=== PATIENT | female | born 1975 | race American Indian/Alaskan Native ===

== ENCOUNTER 2019-04-02 16:10 | Emergency (ER) | payer SELFPAY ==
[2019-04-02 18:01] VITALS: BP 132/91
[2019-04-02 19:40] LABS: Amorphous Crystals,Urine 1+; Bilirubin,Urine NEG (Negative); Blood,Urine MOD (Negative); Color,Urine Yellow (Yellow); Mucus,Urine FEW /HPF; Protein,Urine <15 mg/dL mg/dL (Negative); Urobilinogen,Urine < 2.0 mg/dL (<2.0)
[2019-04-02 19:41] LABS: WBC,Urine < 1.0 /HPF (0.0-6.0)
[2019-04-02 19:50] LABS: Hematocrit 32.9 % (30.3-42.9); Hemoglobin 10.2 gm/dl (10.1-14.3); Mean Corpuscular HGB Conc 31 % (30-34); Mean Corpuscular Volume 72 fl (79-97); Platelet Count 288 K/mm3 (140-440); Red Blood Count 4.56 M/mm3 (3.65-5.03); Red Cell Distribution Width 18.7 % (13.2-15.2)
--- NOTE | 2019-04-02 20:32 | Emergency Department Report ---
ED Female HPI - General Chief complaint: Vaginal Bleeding Stated complaint: HEAVY FLOW Time Seen by Provider: 04/02/19 19:58 Source: patient Mode of arrival: Ambulatory Limitations: No Limitations - History of Present Illness Initial comments: Patient is a 44-year-old female presents emergency room with complaints of vaginal bleeding that began this morning. She states that it is heavy in nature and she has been passing clots. She states that she is having to change every hour. She states that it is time for her regular menstrual cycle. Patient states she has a past medical history of uterine fibroids. She states she has associated lower abdominal cramping and generalized weakness. She denies any nausea, vomiting, diarrhea, fever, urinary symptoms, vaginal discharge, back pain, any other symptoms. She states that she also has a history of anemiashe is on iron supplement. She denies any allergies medications. She denies any personal or family cardiac history or any personal or family history of DVT/PE. She does not have an INCIDENT RESPONSE LEAD. - Related Data Previous Rx's Medication Instructions Recorded Last Taken Type Acetaminophen/Codeine [Tylenol 1 tab PO Q6H PRN #10 tab 04/02/19 Unknown Rx /Codeine # 3 tab] medroxyPROGESTERone ACETATE 10 mg PO QDAY 10 Days #10 tablet 04/02/19 Unknown Rx [Provera] Allergies Allergy/AdvReac Type Severity Reaction Status Date / Time No Known Allergies Allergy Unverified 04/02/19 18:01 ED Review of Systems ROS: Stated complaint: HEAVY FLOW Other details as noted in HPI Comment: All other systems reviewed and negative ED Past Medical Hx - Past Medical History Previous Medical History?: Yes Additional medical history: Fibroids. Anemia - Surgical History Past Surgical History?: Yes Additional Surgical History: C section. Upper extremity amputation. - Social History Smoking Status: Never Smoker Substance Use Type: None - Medications Home Medications: Home Medications Medication Instructions Recorded Confirmed Last Taken Type Acetaminophen/Codeine [Tylenol 1 tab PO Q6H PRN #10 tab 04/02/19 Unknown Rx /Codeine # 3 tab] medroxyPROGESTERone ACETATE 10 mg PO QDAY 10 Days #10 tablet 04/02/19 Unknown Rx [Provera] ED Physical Exam - General Limitations: No Limitations General appearance: alert, in no apparent distress - Head Head exam: Present: atraumatic, normocephalic - Eye Eye exam: Present: normal appearance - ENT ENT exam: Present: mucous membranes moist - Respiratory Respiratory exam: Present: normal lung sounds bilaterally. Absent: respiratory distress, wheezes, rales, rhonchi, stridor, chest wall tenderness, accessory muscle use, decreased breath sounds, prolonged expiratory - Cardiovascular Cardiovascular Exam: Present: regular rate, normal rhythm, normal heart sounds. Absent: systolic murmur, diastolic murmur, rubs, gallop - GI/Abdominal GI/Abdominal exam: Present: soft, tenderness (mild suprapubic), normal bowel sounds. Absent: distended, guarding, rebound, rigid - Neurological Exam Neurological exam: Present: alert, oriented X3 - Psychiatric Psychiatric exam: Present: normal affect, normal mood - Skin Skin exam: Present: warm, dry, intact ED Course Vital Signs 04/02/19 04/02/19 17:59 20:46 Temperature 98.6 F Pulse Rate 78 73 Respiratory 18 16 Rate Blood Pressure 132/91 O2 Sat by Pulse 100 100 Oximetry ED Medical Decision Making - Lab Data Result diagrams: 04/02/19 19:27 - Medical Decision Making Patient is a 44-year-old female presents emergency room with complaints of vaginal bleeding that began this morning. She states that it is heavy in nature and she has been passing clots. She states that she is having to change every hour. She states that it is time for her regular menstrual cycle. Patient states she has a past medical history of uterine fibroids. She states she has associated lower abdominal cramping and generalized weakness. She denies any nausea, vomiting, diarrhea, fever, urinary symptoms, vaginal discharge, back pain, any other symptoms. She states that she also has a history of anemiashe is on iron supplement. She denies any allergies medications. She denies any personal or family cardiac history or any personal or family history of DVT/PE. She does not have an INCIDENT RESPONSE LEAD. Vitals are normal patient is not hypotensive or tachycardic. H&H are normal. HCG Quant is negative. UA shows red blood cells no signs of UTI. on exam: mild suprapubic TTP, no guarding, no rebound, no peritoneal signs. Patient is presenting with abnormal uterine bleeding, patient follow-up with an INCIDENT RESPONSE LEAD for further evaluation and management, patient states that she has a history of uterine fibroids. Patient's discomfort treated while in the emergency department as patient did not drive and her pain improved. Patient does not have any cardiac or VTE risk factors will prescribe patient short course of Provera. Patient given prescription for Provera and Tylenol with codeine. advised pt to Please take medication as prescribed. Do not drive or operate heavy machinery while taking pain medication. Increase your water intake over the next several days. Follow-up with a INCIDENT RESPONSE LEAD in the next 2-3 days for further evaluation and treatment. Return to the emergency room for any new or worsening symptoms. - Differential Diagnosis uterine fibroids, endometriosis, adenomyosis, AUB Critical care attestation.: If time is entered above; I have spent that time in minutes in the direct care of this critically ill patient, excluding procedure time. ED Disposition Clinical Impression: Abnormal uterine bleeding (AUB), Dysmenorrhea Menorrhagia Qualifiers: Menorrahagia type: with regular cycle Qualified Code(s): N92.0 - Excessive and frequent menstruation with regular cycle Disposition: TO HOME OR SELFCARE Is pt being admited?: No Does the pt Need Aspirin: No Condition: Stable Instructions: Dysmenorrhea (ED), Menorrhagia (ED) Additional Instructions: Please take medication as prescribed. Do not drive or operate heavy machinery while taking pain medication. Increase your water intake over the next several days. Follow-up with a INCIDENT RESPONSE LEAD in the next 2-3 days for further evaluation and treatment. Return to the emergency room for any new or worsening symptoms. Prescriptions: medroxyPROGESTERone ACETATE [Provera] 10 mg PO QDAY 10 Days #10 tablet Acetaminophen/Codeine [Tylenol /Codeine # 3 tab] 1 tab PO Q6H PRN #10 tab PRN Reason: Pain , Severe (7-10) Referrals: [facility] [Provider Group] - 2-3 Days [facility] [Provider Group] - 2-3 Days [facility] [Provider Group] - 2-3 Days Time of Disposition: 20:32 Print Language: MAURITIAN
[2019-04-02] MEDS ORDERED: traMADol 50 MG TAB PO ONE (20:34)
[2019-04-02 21:28] LABS: Basophils % (Manual) 0 % (0.0-1.8); Total Cells Counted 100
[2019-04-02 21:30] LABS: Large Platelets 1+; RBC Morphology Normal
[2019-04-02 21:31] LABS: Platelet Estimate Consistent w Auto
== END 2019-04-02 20:48 | disposition home or self-care (01) ==
LOC: ED 16:10
DX: N93.8 Other specified abnormal uterine and vaginal bleeding (principal); N94.6 Dysmenorrhea, unspecified; D64.9 Anemia, unspecified; Z98.890 Other specified postprocedural states; Z79.899 Other long term (current) drug therapy
CPT/HCPCS: 36415; 81001; 84702; 85007; 85025; 86900; 86901

== ENCOUNTER 2019-11-23 17:12 | Emergency (ER) | payer SELFPAY ==
[2019-11-23 21:15] LABS: Basophils # (Auto) 0.1 K/mm3 (0.0-0.1); Basophils % (Auto) 1.1 % (0.0-1.8); Eosinophils # (Auto) 0.2 K/mm3 (0.0-0.4); Eosinophils % (Auto) 2.1 % (0.0-4.3); Lymphocytes # (Auto) 2.5 K/mm3 (1.2-5.4); Mean Corpuscular HGB Conc 30 % (30-34); Monocytes # (Auto) 0.6 K/mm3 (0.0-0.8); Monocytes % (Auto) 6.4 % (0.0-7.3); Platelet Count 354 K/mm3 (140-440); Red Blood Count 4.56 M/mm3 (3.65-5.03)
[2019-11-23 21:17] LABS: Hemoglobin 8.3 gm/dl (10.1-14.3); Mean Corpuscular Volume 62 fl (79-97); Red Cell Distribution Width 22.3 % (13.2-15.2)
[2019-11-23 21:42] LABS: Alanine Aminotransferase 10 units/L (7-56); Albumin 3.9 g/dL (3.9-5); BUN/Creatinine Ratio 14; Blood Urea Nitrogen 7 mg/dL (7-17); Calcium 8.5 mg/dL (8.4-10.2); Hemolysis Index 0
--- NOTE | 2019-11-23 22:00 | XRay Report ---
CHEST 2 VIEWS INDICATION: Chest Pain. COMPARISON: None. FINDINGS: Support devices: None. Heart: Within normal limits. Lungs/Pleura: No acute air space or interstitial disease. No significant pleural effusion. IMPRESSION: No acute findings. Signer Name: Kennedy Evans MD Signed: 11/23/2019 9:56 PM Workstation Name: [id number]
[2019-11-23] MEDS ORDERED: KETOROLAC 30 MG/1 ML INJ IV ONE (23:56)
--- NOTE | 2019-11-24 00:02 | Emergency Department Report ---
ED Chest Pain HPI - General Chief Complaint: Chest Pain Stated Complaint: PAIN/HBP Time Seen by Provider: 11/23/19 23:35 Source: patient Mode of arrival: Ambulatory Limitations: No Limitations - History of Present Illness Initial Comments: 44-year-old female presents to the emergency department from an urgent care with a complaint of some left-sided chest pain with radiation to the left arm and back. Patient says that the arm pain started first but she has a history of some recurrent left arm pain. The pain seems to worsen with certain movements o f her body. She has some shortness of breath, but denies any fever, nausea, vomiting, diaphoresis. She went to an urgent care and was found to have very elevated blood pressure and was told to come to the emergency department for further evaluation. She has a past medical history of anemia and fibroids. No recent travel or sick contacts at home. She denies any tobacco or illicit drug use. Severity scale (0 -10): 10 - Related Data Previous Rx's Medication Instructions Recorded Last Taken Type Acetaminophen/Codeine [Tylenol 1 tab PO Q6H PRN #10 tab 04/02/19 Unknown Rx /Codeine # 3 tab] medroxyPROGESTERone ACETATE 10 mg PO QDAY 10 Days #10 tablet 04/02/19 Unknown Rx [Provera] Allergies Allergy/AdvReac Type Severity Reaction Status Date / Time No Known Allergies Allergy Unverified 04/02/19 18:01 Heart Score - HEART Score History: Slightly suspicious EKG: Non-specific Age: 45-65 Risk factors: No known risk factors Troponin: < normal limit HEART Score: 2 - Critical Actions Critical Actions: 0-3 pts:0.9-1.7%risk of adverse cardiac event.Candidate for discharge ED Review of Systems ROS: Stated complaint: PAIN/HBP Other details as noted in HPI Comment: All other systems reviewed and negative Constitutional: denies: chills, fever Eyes: denies: eye pain, vision change ENT: denies: ear pain, throat pain Respiratory: shortness of breath. denies: cough Cardiovascular: chest pain. denies: palpitations Gastrointestinal: denies: abdominal pain, vomiting Genitourinary: denies: dysuria, discharge Musculoskeletal: back pain, arthralgia. denies: joint swelling Skin: denies: rash, lesions Neurological: denies: headache, weakness ED Past Medical Hx - Past Medical History Previous Medical History?: Yes Additional medical history: Fibroids. Anemia - Surgical History Past Surgical History?: Yes Additional Surgical History: C section. Upper extremity amputation. - Social History Smoking Status: Never Smoker Substance Use Type: None - Medications Home Medications: Home Medications Medication Instructions Recorded Confirmed Last Taken Type Acetaminophen/Codeine [Tylenol 1 tab PO Q6H PRN #10 tab 04/02/19 Unknown Rx /Codeine # 3 tab] medroxyPROGESTERone ACETATE 10 mg PO QDAY 10 Days #10 tablet 04/02/19 Unknown Rx [Provera] ED Physical Exam - General Limitations: No Limitations - Other Other exam information: GENERAL: The patient is well-developed well-nourished. HENT: Normocephalic. Atraumatic. Patient has moist mucous membranes. EYES: Extraocular motions are intact. NECK: Supple. Trachea is midline. CHEST/LUNGS: Clear to auscultation. There is no respiratory distress noted. There is some reproducible left-sided chest wall tenderness to palpation but no crepitus or deformity. HEART/CARDIOVASCULAR: Regular. There is no tachycardia. There is no murmur. ABDOMEN: Abdomen is soft, nontender. Patient has normal bowel sounds. SKIN: Skin is warm and dry. NEURO: The patient is awake, alert, and oriented. The patient is cooperative. Normal speech. MUSCULOSKELETAL: There is no tenderness or deformity. There is no evidence of acute injury. ED Course Vital Signs 11/23/19 11/23/19 11/23/19 17:25 21:30 23:46 Temperature 98.3 F Pulse Rate 79 77 75 Respiratory 18 18 22 Rate Blood Pressure Blood Pressure 181/92 174/97 [Right] O2 Sat by Pulse 99 100 Oximetry 11/23/19 11/24/19 11/24/19 23:47 00:00 00:16 Temperature Pulse Rate 74 71 73 Respiratory 12 18 15 Rate Blood Pressure 186/96 137/68 Blood Pressure [Right] O2 Sat by Pulse 100 100 Oximetry 11/24/19 11/24/19 11/24/19 00:30 00:54 01:00 Temperature Pulse Rate 73 93 H 74 Respiratory 15 14 12 Rate Blood Pressure 137/68 137/68 137/68 Blood Pressure [Right] O2 Sat by Pulse 100 100 100 Oximetry 11/24/19 11/24/19 11/24/19 02:29 02:30 02:47 Temperature 98.5 F Pulse Rate 69 Respiratory 12 16 Rate Blood Pressure 137/68 137/68 Blood Pressure [Right] O2 Sat by Pulse 100 Oximetry ANDREA score - Andrea Score Age > 65: (0) No Aspirin use within the Past 7 Days: (0) No 3 or more CAD Risk Factors: (0) No 2 or more Angina events in past 24 hrs: (1) Yes Known CAD with more than 50% Stenosis: (0) No Elevated Cardiac Markers: (0) No ST Deviation Greater than 0.5mm: (0) No ANDREA Score: 1 ED Medical Decision Making - Lab Data Result diagrams: 11/23/19 20:50 11/23/19 20:50 - EKG Data -: EKG Interpreted by Me EKG shows normal: sinus rhythm, axis, intervals, QRS complexes (Q waves to the septal leads), ST-T waves Rate: normal - EKG Data When compared to previous EKG there are: previous EKG unavailable Interpretation: other (Sinus rhythm at 78 bpm, normal axis, normal intervals, Q waves to the septal leads) - Radiology Data Radiology results: report reviewed, image reviewed interpreted by me: Chest x-ray does not show any acute process. There are no pleural effusions, obvious pneumonia and there is no pneumothorax. CTA CHEST WITH IV CONTRAST INDICATION: Chest pain and elevated d-dimer. LETTY HNIQUE: Axial CT images were obtained through the chest after injection of 100 cc Omnipaque 350 IV contrast. 3 plane MIP reconstructions were produced. All CT scans at this location are performed using CT dose reduction for ALARA by means of automated exposure control. COMPARISON: None available. FINDINGS: Exam is slightly limited secondary to respiratory motion. PULMONARY ARTERIES: No pulmonary emboli. THORACIC AORTA: No acute abnormality. HEART: Normal. CORONARY ARTERIES: No significant calcification. PLEURA: No pleural effusion. No pneumothorax. LYMPH NODES: No significant adenopathy. LUNGS: No acute air space or interstitial disease. 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 SKELETAL STRUCTURES: No significant osseous abnormality. IMPRESSION: 1. No CT evidence for pulmonary embolism. 2. No acute findings. - Medical Decision Making This patient presents with some left arm pain and some left-sided chest pain with radiation to the back. The chest pain is reproducible to palpation of the chest wall but no crepitus or deformity. Chest x-ray does not show any acute process. EKG did not show any signs of ST elevation [place] or dysrhythmia. Patient's labs were mostly unremarkable including negative troponins x2 but the patient did have an elevated d-dimer level. For this reason the patient had a CT angiography of the chest that did not show any pulmonary embolism or any other acute findings. Her vital signs were stable throughout her ED course. She was given a dose of Toradol. Upon reevaluation she is feeling greatly improved. Patient has a low heart and ANDREA score. For all these reasons she appears safe for discharge home at this time. Her contact information has been sent over to [facility] [place] as part of our low risk chest pain protocol, and someone from their office should be contacting her shortly for close outpatient follow-up. The patient will return to the ER with any worsening of her symptoms or any acute distress. Critical Care Time: No Critical care attestation.: If time is entered above; I have spent that time in minutes in the direct care of this critically ill patient, excluding procedure time. ED Disposition Clinical Impression: Hypertension Qualifiers: Hypertension type: essential hypertension Qualified Code(s): I10 - Essential (primary) hypertension Chest pain Qualifiers: Chest pain type: unspecified Qualified Code(s): R07.9 - Chest pain, unspecified Disposition: DC-01 TO HOME OR SELFCARE Is pt being admited?: No Condition: Stable Instructions: Chest Pain (ED), Costochondritis (ED), Hypertension (ED) Additional Instructions: Please follow-up with your primary care physician in the next few days. I am sending your contact information to [facility] [place], and someone from their office should be contacting you shortly for close outpatient follow-up. Try to stay away from foods that are high in salt and caffeinated products. Keep a blood pressure log. Return to the emergency department with any worsening of your symptoms or any acute distress. Referrals: ANETA PHAN MD [Primary Care Provider] - 2-3 Days SOCORRO BOATENG MD [Staff Physician] - 2-3 Days Time of Disposition: 02:44
--- NOTE | 2019-11-24 01:13 | Cat Scan Report ---
CTA CHEST WITH IV CONTRAST INDICATION: Chest pain and elevated d-dimer. TECHNIQUE: Axial CT images were obtained through the chest after injection of 100 cc Omnipaque 350 IV contrast. 3 plane MIP reconstructions were produced. All CT scans at this location are performed using CT dose reduction for ALARA by means of automated exposure control. COMPARISON: None available. FINDINGS: Exam is slightly limited secondary to respiratory motion. PULMONARY ARTERIES: No pulmonary emboli. THORACIC AORTA: No acute abnormality. HEART: Normal. CORONARY ARTERIES: No significant calcification. PLEURA: No pleural effusion. No pneumothorax. LYMPH NODES: No significant adenopathy. LUNGS: No acute air space or interstitial disease. ADDITIONAL FINDINGS: 3.8 cm left pectoralis major intramuscular lipoma UPPER ABDOMEN: No acute findings. SKELETAL STRUCTURES: No significant osseous abnormality. IMPRESSION: 1. No CT evidence for pulmonary embolism. 2. No acute findings. Signer Name: Mike Tay MD Signed: 11/24/2019 1:09 AM Workstation Name: [id number]
[2019-11-24] MEDS ORDERED: POTASSIUM CHLORIDE ER 20 MEQ TAB PO ONE (01:19)
[2019-11-24 02:47] VITALS: BP 137/68
== END 2019-11-24 02:52 | disposition home or self-care (01) ==
LOC: ED 17:12
DX: R07.89 Other chest pain (principal); R06.02 Shortness of breath; I10 Essential (primary) hypertension; Z86.2 Personal history of diseases of the blood and blood-forming organs and certain disorders involving the immune mechanism; Z98.890 Other specified postprocedural states
CPT/HCPCS: 36415; 71046; 71275; 80053; 83880; 84484; 84703; 85025; 85379; 93005; 96374; 99284; J1885; Q9967